=== PATIENT | male | born 1950 | race Two or more races ===

== ENCOUNTER 2024-03-30 07:09 | Day surgery (SDC) | payer OTHER ==
[2024-03-30] VITALS (8 sets, daily range): BP systolic 137–160; BP diastolic 68–82; PULSE 61–70; RESP 12–19; O2SAT 90–97
[~2024-03-30] VITALS: Ht 165.1 cm; Wt 88.5 kg
[~2024-03-30 07:09] MED LIST: AMLO1TAB22 PO; ASPI-543 PO; ATOR40TA52 PO; CARV6.2551 PO; METF-370 PO
[2024-03-30] MEDS ORDERED: IODIXANOL 320MG/ML 100ML BTL IV ONE (07:24)
[2024-03-30] MEDS ORDERED: HEPARIN IN NS 1000Units/500mL 1,500 ML ONE (07:25)
[2024-03-30] MEDS ORDERED: ANGIOMAX 250 MG VIAL IV ONE (07:50)
[2024-03-30] MEDS ORDERED: VERAPAMIL 2.5MG/ML INJ 2ML VIAL IV ONE (07:50)
[2024-03-30] MEDS ORDERED: MIDAZOLAM HCL 2MG/2ML 2ml VIAL (1mg/ml) ONE (07:51)
[2024-03-30] MEDS ORDERED: fentaNYL CITRATE 100 MCG/2 ML VL ONE (07:51)
[2024-03-30] MEDS ORDERED: SODIUM CHL 0.9% 0 ML ONE (07:51)
[2024-03-30] MEDS ORDERED: LIDOCAINE 2%HCL (LOCAL ANESTH.) INJ 20ML MDV ONE (07:51)
[2024-03-30] MEDS ORDERED: HEPARIN SODIUM (PORCINE) 5000 UNITS/ML 1ML VIAL ONE (08:39)
--- NOTE | 2024-03-30 08:56 | DVHOP2 ---
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 PREOPERATIVE DIAGNOSES: hx of cad s/p C showing small vessels at OSH POSTOP DIAGNOSIS: severe small vessel disease DESCRIPTION OF PROCEDURE: The patient or appropriate family signed informed consent understanding the risks, benefits and alternatives of the procedure, they wished to proceed. The patient was brought to the cardiac supervisor dental laboratory [place]. The patient was prepped in a sterile fashion. Sedation was used per cardiac cath protocol. I administered 2 mL of 2% lidocaine to the right wrist. With an antegrade front wall puncture. I cannulated the right radial artery and placed a 6-Ind[place] Glidesheath slender. Next, an intra-arterial spasmolytic was administered. Next, a - 5 Indonesian Hagan catheter and were used for coronary angiogram and LVEDP measurement and pressure pullback. At the completion of procedure, all guides and wires were removed, and there were no immediate complications. FINDINGS: RCA: Moderate to large vessel off the right sinus of Valsalva, there is no severe flow limiting stenosis in the prox and mid portion .distal RCA gives off PDA .distal PDA has tanddem 90 and 99% stenosis its barely 1.5 mm vessel LEFT MAIN: Moderate size left main, it bifurcates into LAD and circumflex. its free of severe disease. CIRCUMFLEX: Moderate caliber vessel coming off the left main with no flow limiting stenosis. 80% OM lesion distally again barely measuring 2 mm. LAD: LAD is a moderate caliber vessel coming of the left main. prox and mid portion are patent. distal LAD and large septal bifurcates. septal which is nearly codominant vessel to LAD has diffuse long stenosis . LAD itself has about 80 mm of long diffuse disease barely measuring 2 mm . apical LAD likely is a poor target. 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 CONCLUSIONS: 1. severe multivessel small vessel disease PLAN: Aggressive risk factor modification and medical management for the patient. does not appear to be a CABG or PCI candidate given distal disesae nature consider anti anginal , plavix, statin, ranexa TRISH FLORES MD Mar 30, 2024 08:56
--- NOTE | 2024-03-30 13:13 | ECG ---
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
== END 2024-03-30 11:17 | disposition home or self-care (01) ==
LOC: CATH 07:09
PROVIDERS: ATTEND Internal Medicine
DX: I25.10 Atherosclerotic heart disease of native coronary artery without angina pectoris (principal); I45.10 Unspecified right bundle-branch block; I73.9 Peripheral vascular disease, unspecified; I10 Essential (primary) hypertension; E11.9 Type 2 diabetes mellitus without complications; E78.00 Pure hypercholesterolemia, unspecified; I25.2 Old myocardial infarction; Z79.899 Other long term (current) drug therapy; Z87.891 Personal history of nicotine dependence; Z98.890 Other specified postprocedural states; Z79.84 Long term (current) use of oral hypoglycemic drugs
CPT/HCPCS: 93005; 93458; C1769; C1894; J1644; J2250; J3010; J7030; Q9967; 99152